=== PATIENT | female | born 1995 | race African-American/Black ===

== ENCOUNTER 2020-08-30 07:39 | Emergency (ER) | payer MEDICAID ==
[~2020-08-30] VITALS: Ht 160 cm; Wt 71.0 kg
[2020-08-30] MEDS ORDERED: KETOROLAC 30MG/ML VIAL IV STA (08:29)
[2020-08-30 10:00] LABS: BASOPHILS % 0.5 % (0.0-2.0); EOSINOPHILS % 0.5 % (0.0-5.0); HEMATOCRIT. 37.8 % (36.0-48.0); HEMOGLOBIN. 13.1 g/dL (12.0-16.0); LYMPHOCYTES % 34.8 % (20.0-50.0); MEAN CORPUSCULAR HEMOGLOBIN 31.4 pg (28.0-32.0); MEAN CORPUSCULAR VOLUME 90.5 fL (81.0-99.0); MEAN PLATELET VOLUME 8.2 fl (7.4-10.4); MONOCYTES % 6.3 % (2.0-8.0); NEUTROPHILS % 57.9 % (40.0-76.0); PLATELET 358 x1000/uL (130-400); RED BLOOD CELL COUNT 4.18 mill/uL (4.2-5.4); RED CELL DISTRIBUTION WIDTH 13.2 % (11.6-14.6)
[2020-08-30 10:10] LABS: CHLORIDE 104 mEq/L (98-107)
[2020-08-30 10:30] LABS: HCG SCREEN NEGATIVE
[2020-08-30] MEDS ORDERED: TOPUD PO (13:23)
[2020-08-30 14:05] VITALS: BP 116/80
== END 2020-08-30 14:06 | disposition home or self-care (01) ==
LOC: ER 07:39
DX: R07.89 Other chest pain (principal); Z82.49 Family history of ischemic heart disease and other diseases of the circulatory system
CPT/HCPCS: 36415; 71045; 80053; 81025; 83880; 84484; 84703; 85025; 93005; 96374; 99285; J1885; Z7610